=== PATIENT | male | born 1950 | race Asian ===

== ENCOUNTER 2017-02-17 16:16 | Observation (INO) | payer MEDICARE, OTHER, SELFPAY ==
[~2017-02-17] VITALS: Ht 165.1 cm; Wt 70.1 kg
[2017-02-17] MEDS ORDERED: DIPH,PERTUSS(ACELL),TET VAC/PF 0.5 ML IM-VACC ONE ×2 (16:24→16:30)
[2017-02-17] MEDS ORDERED: MORPHINE SULFATE 4 MG/ML, 1ML ONE (16:25)
[2017-02-17] MEDS ORDERED: ONDANSETRON 2MG/ML, 2ML ONE ×2 (16:25→19:28)
[2017-02-17] MEDS ORDERED: ONDANSETRON 2MG/ML, 2ML IVPush ONE (16:30)
[2017-02-17] MEDS ORDERED: MORPHINE SULFATE 4 MG/ML, 1ML IVPush PRN (16:30)
[2017-02-17 16:44] LABS: HEMATOCRIT 47.6 % (39.2-51.8); HEMOGLOBIN 16.2 g/dL (13.7-18.0); WHITE BLOOD COUNT 6.5 x10^3/uL (3.4-10)
[2017-02-17 16:56] LABS: ASPARTATE AMINO TRANSFERASE 31 U/L (15-37); BLOOD UREA NITROGEN 24 mg/dL (7-18)
[2017-02-17] MEDS ORDERED: CEFAZOLIN PMX 2GM/50ML 50 ML IVPB ONE (17:00)
[2017-02-17 18:20] VITALS: BP 161/82
[2017-02-17] MEDS ORDERED: FENTANYL PF 100 MCG/2ML ONE (19:01)
[2017-02-17] MEDS ORDERED: MIDAZOLAM 1 MG/ML, 2ML ONE (19:01)
[2017-02-17] MEDS ORDERED: ROCURONIUM 10 MG/ML,10ML ONE (19:28)
[2017-02-17] MEDS ORDERED: DEXAMETHASONE 4 MG/ML, 1ML ONE (19:28)
[2017-02-17] MEDS ORDERED: SUCCINYLCHOLINE 20 MG/ML, 10ML ONE (19:28)
[2017-02-17] MEDS ORDERED: CEFAZOLIN 1,000 MG ONE (19:28)
[2017-02-17] MEDS ORDERED: PROPOFOL 10 MG/ML, 20ML ONE (19:28)
[2017-02-17] MEDS ORDERED: BUPIVACAINE/PF 0.5% ONE (19:41)
[2017-02-17] MEDS ORDERED: OXYcodone 5 MG/5 ML ORAL.SOL UDC PO PRN ×2 (20:00→20:30)
[2017-02-17] MEDS ORDERED: FENTANYL PF 100 MCG/2ML IV PRN (20:00)
[2017-02-17] MEDS ORDERED: METOCLOPRAMIDE 5 MG/ML, 2ML IV PRN (20:00)
[2017-02-17] MEDS ORDERED: ACETAMINOPHEN 325 MG TABLET PO PRN ×2 (20:00→20:30)
[2017-02-17] MEDS ORDERED: ONDANSETRON 2MG/ML, 2ML IVPush PRN ×2 (20:00→20:30)
[2017-02-17] MEDS ORDERED: HYDROmorphone 1 MG/ML, 1ML IV PRN (20:00)
[2017-02-17] MEDS ORDERED: hydrALAzine 20 MG/ML, 1ML IV PRN (20:00)
[2017-02-17] MEDS ORDERED: LABETALOL 5MG/ML, 20ML IV PRN (20:00)
[2017-02-17] MEDS ORDERED: BUPIVACAINE/PF 0.5% INJ ONE (20:03)
[2017-02-17] MEDS ORDERED: PROMETHAZINE 25 MG/ML, 1ML IM PRN (20:30)
[2017-02-17] MEDS ORDERED: morphine SULFATE 10 MG/ML, 1ML IVPush PRN (20:30)
[2017-02-17] MEDS ORDERED: ACETAMINOPHEN 650 MG/20.3 ML UDC ONE (20:32)
[2017-02-17] MEDS ORDERED: OXYcodone 5 MG/5 ML ORAL.SOL UDC ONE (20:32)
[2017-02-17] MEDS ORDERED: AMOX1TAB64 PO (22:22)
[2017-02-17] MEDS ORDERED: OXYC5TAB2 PO (22:26)
== END 2017-02-17 23:10 | disposition home or self-care (01) ==
LOC: ED 17:03 → EDIP 17:04 → ED 17:22 → 4NOR 22:03
PROVIDERS: ADMIT Orthopaedic Surgery; ATTEND Orthopaedic Surgery
DX: S68.121A Partial traumatic metacarpophalangeal amputation of left index finger, initial encounter (principal); S61.012A Laceration without foreign body of left thumb without damage to nail, initial encounter; W31.2XXA Contact with powered woodworking and forming machines, initial encounter; Y92.89 Other specified places as the place of occurrence of the external cause; Y93.89 Activity, other specified; Y99.8 Other external cause status; S62.611A Displaced fracture of proximal phalanx of left index finger, initial encounter for closed fracture; S62.611B Displaced fracture of proximal phalanx of left index finger, initial encounter for open fracture; Z23 Encounter for immunization
CPT/HCPCS: 26951; 36415; 73130; 80053; 85025; 85610; 85730; 86850; 86900; 90471; 90715; 96365; 96375; G0008; G0378; J0330; J0690; J1100; J2250; J2405; J2704; J3010; J3490